=== PATIENT | male | born 1990 | race Asian ===

== ENCOUNTER 2020-11-22 19:32 | Emergency (ER) | payer OTHER ==
--- OUTSIDE RECORDS SUMMARY | 2020-11-22 19:34 | XMS REPORT | Continuity of Care Document ---
:1990 Author Organization [facility] t Address [address] [place] [address] Care Team Providers Name Role Phone Rosaline PALENCIA, Long Attending Clinician Surv, Seth Cui Attending Clinician Unavailable Problems This patient has no known problems. Allergies, Adverse Reactions, Alerts This patient has no known allergies or adverse reactions. Social History Social Habit Start Date Stop Date Quantity Comments Source Sex Assigned At [birth year] [facility] 00:00:00 00:00:00 Medications This patient has no known medications. Procedures Procedure Date / Time Performed Performing Clinician Maddie herrera COVID-19 QUALITATIVE PCR 2020-02-26 14:10:00 Valeriano Waggoner [facility] Plan of Care Planned Activity Planned Date Details Comments Source Future Scheduled 2021-03-09 INFLUENZA VACCINE [place] [facility] 00:00:00 [code = INFLUENZA VACCINE] Future Scheduled 2004 COVID-19 VACCINE (1) [facility] 00:00:00 [code = COVID-19 VACCINE (1)] Encounters Start End Encounter Admission Attending Care Care Encounter Source Date/Time Date/Time Type Type Clinicians Facility Department ID 2020-09-02 2020-09-02 Outpatient [facility] [id number] 2020-08-29 2020-08-29 Outpatient [facility] [id number] [facility] 2020-08-26 2020-08-26 Outpatient [facility] [id number] [facility] 2020-06-18 2020-06-18 Outpatient [facility] [id number] [facility] 00:00:00 00:00:00 [facility] 2020-05-29 2020-05-29 Outpatient [facility] [id number] [facility] 00:00:00 00:00:00 [facility] 2020-02-26 2020-02-26 Outpatient [facility]INE [facility] [id number] [place] 00:00:00 00:00:00 [facility] 2020-01-04 2020-01-04 [id number] [facility] 14:00:00 14:00:00 [facility] Results This patient has no known results.
[2020-11-22] MEDS ORDERED: IBUPROFEN 400 MG TAB ONE (20:13)
--- NOTE | 2020-11-22 20:55 | ER ---
Nurse's Notes [facility] Name: Jai Bonilla Age: 30 yrs Sex: Male : 1990 Arrival Date: 11/22/2020 Time: 19:33 Bed 20 Private MD: Diagnosis: Strain of unspecified muscle, fascia and tendon at shoulder and upper arm level, left arm Presentation: 11/22 19:40 Chief complaint: Patient states: HX of subluxation of L shoulder. Was hanging a 2L of ca1 Humidifier on a pole, felt a tear on L shoulder. Happened around 1500 today. Pain had gotten worse in the last hour. Coronavirus screen: Client denies travel out of the [place] in the last 14 days. At this time, the client does not indicate any symptoms associated with coronavirus-19. Ebola Screen: Patient negative for fever greater than or equal to 101.5 degrees Fahrenheit, and additional compatible Ebola Virus Disease symptoms Patient denies exposure to infectious person. Patient denies travel to an Ebola-affected area in the 21 days before illness onset. No symptoms or risks identified at this time. Initial Sepsis Screen: Does the patient meet any 2 criteria? No. Patient's initial sepsis screen is negative. Does the patient have a suspected source of infection? No. Patient's initial sepsis screen is negative. Risk Assessment: Do you want to hurt yourself or someone else? Patient reports no desire to harm self or others. Onset of symptoms was November 22, 2020. 19:40 Method Of Arrival: Ambulatory ca1 19:40 Acuity: ZEB 3 ca1 Historical: - Allergies: 19:45 No Known Allergies; ca1 - Home Meds: 19:45 None [Active]; ca1 - PMHx: 19:45 None; ca1 - PSHx: 19:45 None; ca1 - Immunization history:: Client reports receiving the 2nd dose of the Covid vaccine, Client reports receiving the 1st dose of the Covid vaccine, Flu vaccine is up to date. - Social history:: Smoking status: Patient denies any tobacco usage or history of. Screenin:47 Abuse screen: Denies threats or abuse. Nutritional screening: No deficits noted. ea Tuberculosis screening: No symptoms or risk factors identified. Fall Risk None identified. Assessment: 20:00 General: Appears uncomfortable, Behavior is calm, cooperative, appropriate for age. ea Pain: Complains of pain in anterior aspect of left shoulder. Neuro: Level of Consciousness is awake, alert, obeys commands, Oriented to person, place, time. Cardiovascular: Patient's skin is warm and dry. Respiratory: Airway is patent Respiratory effort is even, unlabored, Respiratory pattern is regular, symmetrical. Derm: Skin is pink, warm \T\ dry. 20:58 Reassessment: Patient and/or family updated on plan of care and expected duration. Pain ea level reassessed. Patient is alert, oriented x 3, equal unlabored respirations, skin warm/dry/pink. Discharge instruction given to patient verbalized the understanding of instruction. pt left ED ambulatory tolerating well. Vital Signs: 19:40 BP 130 / 83; Pulse 62; Resp 16 S; Temp 96.3; Pulse Ox 97% on R/A; Weight 70.31 kg (R); ca1 Height 5 ft. 10 in. (177.80 cm) (R); Pain 8/10; 19:40 Body Mass Index 22.24 (70.31 kg, 177.80 cm) ca1 ED Course: 19:33 Patient arrived in ED. bp1 19:45 Triage completed. ca1 19:45 Arm band placed on right wrist. ca1 19:47 Pat Craig, RN is Primary Nurse. ea 19:47 Patient has correct armband on for positive identification. Bed in low position. Pulse ea ox on. NIBP on. 19:48 Todd Ma PA is PHCP. cp 19:48 Roberto Parmar MD is Attending Physician. cp 20:38 XRAY Shoulder LEFT 2 view In Process Unspecified. EDMS 20:47 No provider procedures requiring assistance completed. Patient did not have IV access ea during this emergency room visit. 20:53 Xavi Maynard MD is Referral Physician. cp Administered Medications: 19:58 Drug: Ibuprofen 800 mg Route: PO; ea 20:46 Follow up: Response: No adverse reaction ea Outcome: 20:54 Discharge ordered by . cp 20:58 Discharged to home ambulatory, with family. ea 20:58 Condition: stable 20:58 Discharge instructions given to patient, Instructed on discharge instructions, follow up and referral plans. medication usage, Demonstrated understanding of instructions, follow-up care, medications, Prescriptions given X 1. 20:59 Patient left the ED. ea Signatures: Dispatcher [employer] EDMS Todd Ma PA PA cp Antunez, Elena RN Isadora Cheung ea RN Era Andrew
--- NOTE | 2020-11-22 20:55 | EDPHYS ---
Physician Documentation [facility] Name: Jai Bonilla Age: 30 yrs Sex: Male : 1990 Arrival Date: 11/22/2020 Time: 19:33 Bed 20 Private MD: ED Physician Roberto Parmar HPI: 11/22 20:00 This 30 yrs old Male presents to ER via Ambulatory with complaints of Shoulder cp Pain, Shoulder Injury. 20:00 The patient or guardian complains of an injury, pain, that is acute. left shoulder. cp 20:00 Context: The problem was sustained at work, resulted from lifting arm to hang L bag cp normal saline. 20:00 Onset: The symptoms/episode began/occurred today. Associated signs and symptoms: cp Pertinent negatives: chest pain, neck pain, Numbness in left arm Weakness in left arm. Patient reports history of left shoulder dislocation in the past. Historical: - Allergies: 19:45 No Known Allergies; ca1 - Home Meds: 19:45 None [Active]; ca1 - PMHx: 19:45 None; ca1 - PSHx: 19:45 None; ca1 - Immunization history:: Client reports receiving the 2nd dose of the Covid vaccine, Client reports receiving the 1st dose of the Covid vaccine, Flu vaccine is up to date. - Social history:: Smoking status: Patient denies any tobacco usage or history of. ROS: 20:05 MS/extremity: Positive for pain, tenderness, of the left shoulder. cp 20:05 Constitutional: Negative for fever. cp 20:05 Neck: Negative for pain with movement, pain at rest. 20:05 Respiratory: Negative for cough, shortness of breath, wheezing. 20:05 Back: Negative for pain at rest, pain with movement. 20:05 Skin: Negative for rash. 20:05 Neuro: Positive for tingling, of the left shoulder, Negative for weakness. 20:05 All other systems are negative. Exam: 20:10 Constitutional: The patient appears in no acute distress, alert, awake, non-toxic, well cp developed, well nourished. 20:10 Head/Face: Normocephalic, atraumatic. cp 20:10 Chest/axilla: Inspection: normal, Palpation: is normal, no crepitus, no tenderness. 20:10 Cardiovascular: Rate: normal. 20:10 Respiratory: the patient does not display signs of respiratory distress, Respirations: normal, no use of accessory muscles, labored breathing, is not present. 20:10 Musculoskeletal/extremity: Extremities: grossly normal except: noted in the left shoulder: pain, tenderness, There is no evidence of deformity, ROM: limited passive range of motion due to pain, raising left arm, Pulses: noted to be 2+ in the left radial artery, the left shoulder Tingling of extremity. Vital Signs: 19:40 BP 130 / 83; Pulse 62; Resp 16 S; Temp 96.3; Pulse Ox 97% on R/A; Weight 70.31 kg (R); ca1 Height 5 ft. 10 in. (177.80 cm) (R); Pain 8/10; 19:40 Body Mass Index 22.24 (70.31 kg, 177.80 cm) ca1 Procedures: 21:00 Splinting: Splint applied to left shoulder using sling, applied by nurse. cp MDM: 19:51 Patient medically screened. cp 20:00 Differential diagnosis: tendonitis, bursitis, strain, dislocation, rotator cuff injury. cp 20:52 Data reviewed: vital signs, nurses notes, radiologic studies, plain films, and as a cp result, I will discharge patient. Test interpretation: by ED physician or midlevel provider: xrays of left shoulder negative for acute findings. Counseling: I had a detailed discussion with the patient and/or guardian regarding: the historical points, exam findings, and any diagnostic results supporting the discharge/admit diagnosis, radiology results, the need for outpatient follow up, a orthopedic surgeon, to return to the emergency department if symptoms worsen or persist or if there are any questions or concerns that arise at home. 11/22 19:52 Order name: XRAY Shoulder LEFT 2 view cp 11/22 20:45 Order name: Sling; Complete Time: 20:54 cp Administered Medications: 19:58 Drug: Ibuprofen 800 mg Route: PO; ea 20:46 Follow up: Response: No adverse reaction ea Disposition: 21:00 Chart complete. cp 11/23 07:26 Co-signature as Attending Physician, Roberto Parmar MD. [email or web address] Disposition: 11/22/20 20:54 Discharged to Home. Impression: Strain of unspecified muscle, fascia and tendon at shoulder and upper arm level, left arm. - Condition is Stable. - Discharge Instructions: Shoulder Pain, Shoulder Range of Motion Exercises, Form - Excuse from Work, School, or Physical Activity. - Prescriptions for Ibuprofen 800 mg Oral Tablet - take 1 tablet by ORAL route every 8 hours As needed take with food; 30 tablet. - Medication Reconciliation Form, Thank You Letter, Antibiotic Education, Prescription Opioid Use form. - Follow up: Xavi Maynard MD; When: 2 - 3 days; Reason: Recheck today's complaints. - Problem is new. - Symptoms have improved. Signatures: Dispatcher [employer] EDMS Todd Ma PA PA cp Antunez, Elena RN Isadora Cheung ea, RN RN ca1 Holmes, Maurice, MD MD [email or web address] Corrections: (The following items were deleted from the chart) 11/22 20:59 20:54 11/22/2020 20:54 Discharged to Home. Impression: Strain of unspecified muscle, ea fascia and tendon at shoulder and upper arm level, left arm. Condition is Stable. Forms are Medication Reconciliation Form, Thank You Letter, Antibiotic Education, Prescription Opioid Use. Follow up: Dr. Xavi Maynard; When: 2 - 3 days; Reason: Recheck today's complaints. Problem is new. Symptoms have improved. cp
--- NOTE | 2020-11-22 21:04 | RAD REPORT ---
EXAM DESCRIPTION: RAD - Shoulder Left 2 View - 11/22/2020 8:38 pm CLINICAL HISTORY: PAIN, left shoulder, tearing pain COMPARISON: No comparisons TECHNIQUE: Internal and external rotation views of the left shoulder were obtained. FINDINGS: There is no fracture or dislocation. AC joint is normal in appearance. No acute or suspici ous findings. IMPRESSION: Negative two-view left shoulder examination for acute findings.
[2020-11-22 21:14] VITALS: BP 130/83; TEMP 96.3; O2SAT 97
== END 2020-11-22 20:59 | disposition home or self-care (01) ==
LOC: ER 19:32
DX: S46.912A Strain of unspecified muscle, fascia and tendon at shoulder and upper arm level, left arm, initial encounter (principal); X50.0XXA Overexertion from strenuous movement or load, initial encounter; Y93.89 Activity, other specified; Y92.89 Other specified places as the place of occurrence of the external cause; Y99.8 Other external cause status
CPT/HCPCS: 99284